=== PATIENT | male | born 2000 | race Caucasian/White ===

== ENCOUNTER 2025-05-24 11:23 | Emergency (ER) | payer OTHER, SELFPAY ==
--- NOTE | ~2025-05-24 | XR_ITS ---
Examination: XR tibia fibula LT 2V Clinical History: laceration ran into metal pole this am, pain since, Comparison: None Technique: 2 views left tibia fibula Findings/impression: 1. No fracture. 2. No radiopaque foreign body. Reviewed, dictated and finalized at location R.
[2025-05-24 11:40] VITALS: BP 113/88; PULSE 74; RESP 16; TEMP 36.7; O2SAT 100
--- NOTE | 2025-05-24 11:44 | ED_ITS ---
HPI - Wound/Laceration General Chief Complaint: Wound/Laceration Stated Complaint: L LOWER LEG INJURY Time Seen by Provider: 05/24/25 11:44 Source: patient Mode of arrival: ambulatory Limitations: no limitations History of Present Illness HPI narrative: 24-year-old male presented for complaint of a laceration to the left salazar sustained just prior to arrival. States he cut the leg at work on a piece of steel. Denies decreased range of motion, numbness, tingling or weakness. Endorses tetanus was updated 02/27/2025. Related Data Allergies Allergy/AdvReac Type Severity Reaction Status Date / Time No Known Allergies Allergy Verified 05/24/25 11:40 Review of Systems Review of Systems: CONSTITUTIONAL: Denies body aches, fever, chills, or sweats. EYES: Denies visual changes, redness, or discharge. ENT: Denies rhinorrhea, congestion CARDIOVASCULAR: Denies chest pain, palpitations, or edema. RESPIRATORY: Denies cough or dyspnea. GASTROINTESTINAL: Denies abdominal pain, nausea, vomiting, or diarrhea. SKIN: reports laceration left salazar MUSCULOSKELETAL: Denies back pain, joint pain, or myalgia. NEUROLOGIC: Denies numbness, tingling, or weakness. PMFSH Comments At time of signature, I have reviewed and agree with nursing past medical, surgical, social and family history unless otherwise noted. Please see nursing chart for further information. There is no relevant family history pertinent to the presenting complaint Exam Narrative: GENERAL: Well-appearing EYES: conjunctivae clear, and EOMI. ENT: Mucous membranes moist. Oropharynx without edema, erythema or lesions. NECK: Supple. No lymphadenopathy CHEST: Clear to auscultation. HEART: Regular rate and rhythm. SKIN: Left salazar laceration deep U-shaped, 2cmx5.5cm. Not approximated. No active drainage. CMS intact. NEURO: Alert and oriented x3. Course Course Emergency Course: Patient is aware of diagnosis, understands and agrees to treatment plan. Anticipatory guidance given. Patient agrees to follow-up as directed and is aware of reasons to seek care at the emergency department. Portions of this record may have been created with voice recognition software Level of Care: Express Care Visit Vital Signs Vital signs: Vital Signs Temperature 98.1 F 05/24/25 11:40 Pulse Rate 74 05/24/25 11:40 Respiratory Rate 16 05/24/25 11:40 Blood Pressure 113/88 05/24/25 11:40 Pulse Oximetry 100 05/24/25 11:40 Temperature 98.1 F 05/24/25 11:40 Pulse Rate 74 05/24/25 11:40 Respiratory Rate 16 05/24/25 11:40 Blood Pressure 113/88 05/24/25 11:40 Pulse Oximetry 100 05/24/25 11:40 Reviewed Procedures Laceration left lower leg: Date: 05/24/25 Size (cm): 5.5 Description: irregular (U-shaped) and clean Depth: simple, single layer Local Anesthetic: lidocaine 1% and with epi ====== Skin Level ====== Skin layer closed with: nylon Size (cm): 4-0 and 5-0 Number of sutures: 11 Technique: simple, interrupted ====== Subcutaneous Layer ====== ====== Muscle Layer ====== ====== Tendon Layer ====== Dressing: The procedure and its alternatives were reviewed with patient. Risks were reviewed with patient including infection and damage to nearby structures. Patient provided verbal informed consent. The patient was positioned appropriately. Sterile drapes applied to maintain sterile field. Wound was explored for abnormalities including infection and foreign bodies. Sutures placed with wound edges approximated; the distal end of the wound is unable to be fully approximated of approx 3mm. Patient tolerated well, no complications. Dressing applied per RN. MDM - Wound/Laceration MDM Narrative Medical decision making narrative: Discussed physical exam findings and xray. Tolerated wound closure. Will send abx. Advised to f/u with Dr Quiles as needed. Advised supportive measures and signs/symptoms to go to the ER. [facility] Differential Diagnosis Differential diagnosis: Likely laceration, abrasion and avulsion of skin Discharge Plan Discharge Clinical Impression: Laceration Patient Disposition: Home Condition: Stable Instructions: Laceration (ED) Additional Instructions: Your sutures need to be removed in 10 days. You can return to the clinic or follow up with your pcp. Wear the dressing that has been applied for the first 24 hours to allow a scab to start forming. After this, you may remove and wash as normal with soap and water. Do NOT wash with peroxide or alcohol. Take tylenol or ibuprofen at home for pain, if able. Follow up with your PCP Go to the ER with any signs of infection such as redness, swelling, increased pain, or drainage. Patient Language: Beninese Prescriptions: New cephalexin 500 mg capsule 500 mg PO Q8H 5 Days Qty: 15 0RF Follow-up/Referrals: Nora Quiles MD [Physician, Plastic Surgery] PHYSICIAN,BRIM STIFFENER [Primary Care Provider, Internal Medicine] Time of Disposition: 13:05
[2025-05-24] MEDS: LIDO 1%/EPINEPHRINE 1:100,000 20 ML VIAL 10 ML INFILTRATE (12:22)
== END 2025-05-24 13:17 | disposition home or self-care (01) ==
PROVIDERS: Emergency Provider Nurse Practitioner Family
DX: S81.812A Laceration without foreign body, left lower leg, initial encounter (principal); W45.8XXA Other foreign body or object entering through skin, initial encounter; Y99.0 Civilian activity done for income or pay
CPT/HCPCS: 12002; 73590; 99203; G0463; J2004